=== PATIENT | male | born 1995 | race Caucasian/White ===

== ENCOUNTER 2020-02-28 06:43 | Day surgery (SDC) | payer OTHER, MEDICARE, MEDICAID ==
[~2020-02-28] VITALS: Ht 175.3 cm; Wt 95.5 kg
[~2020-02-28 06:43] MED LIST: ARIP10TA16 PO; ARIP2TAB20 PO; CLON0.1T83 PO; RINGERS SOLUTION,LACTATED 1,000 ML IV ONE
[2020-02-28] MEDS ORDERED: PROPOFOL 1% 20 ML VIAL IVP ONE (06:44)
[2020-02-28] MEDS ORDERED: LIDOCAINE/PF 2% 5 ML VIAL IM ONE (06:44)
[2020-02-28] MEDS ORDERED: KETAMINE HCL 50 MG/ML 10 ML VIAL IVP ONE (06:44)
[2020-02-28] MEDS ORDERED: MIDAZOLAM HCL 2 MG/2 ML VIAL IVP ONE (06:44)
[2020-02-28] MEDS ORDERED: FentaNYL CITRATE-PF 100 MCG/2 ML VIAL IVP ONE (06:44)
[2020-02-28] MEDS ORDERED: DEXAMETHASONE SOD PHOS 4 MG/ML VIAL IVP ONE (06:44)
[2020-02-28] MEDS ORDERED: SUCCINYLCHOLINE CHLORIDE 20 MG/ML 10 ML VIAL IVP ONE (06:44)
[2020-02-28] MEDS ORDERED: ONDANSETRON HCL 4 MG/2 ML VIAL IVP ONE (06:44)
[2020-02-28] MEDS ORDERED: MIDAZOLAM HCL 5 MG/ML VIAL ONE (07:26)
[2020-02-28 08:05] LABS: COVID AG,FIA SOURCE NASOPHARYNGEAL
[2020-02-28 08:08] LABS: BASOPHILS % (AUTO) 0.7 % (0.0-2.0); EOSINOPHILS % (AUTO) 3.4 % (1.0-6.0); HEMATOCRIT 44.9 % (41-53); HEMOGLOBIN 15.2 g/dL (13.5-17.5); LYMPHOCYTES % (AUTO) 20.7 % (22.0-44.0); MEAN CORPUSCULAR HGB CONC 33.9 G/dL (31.0-37.0); MEAN CORPUSCULAR VOLUME 92 fL (80-100); MONOCYTES # (AUTO) 0.4 K/uL (0.1-1.0); MONOCYTES % (AUTO) 8.7 % (2.0-9.0); NEUTROPHILS # (AUTO) 3.2 K/uL (1.8-7.7); NEUTROPHILS % (AUTO) 66.5 % (40.0-70.0); PLATELET COUNT (AUTO) 259 K/uL (150-450); RED CELL DISTRIBUTION WIDTH 13.9 % (11.5-14.5)
[2020-02-28] MEDS: RINGERS SOLUTION,LACTATED 1,000 ML IV ONE (08:08)
[2020-02-28] MEDS ORDERED: OXYMETAZOLINE HCL 0.05% 15 ML NASAL SPRAY NASAL ONE (08:35)
[2020-02-28 08:38] LABS: ANION GAP 4 mmol/L (8-16); CALCIUM, TOTAL 8.4 mg/dL (8.8-10.5); CARBON DIOXIDE 28 mmol/L (22-29); CHLORIDE 111 mmol/L (98-107); CREATININE 1.07 mg/dL (0.60-1.30); GLOMERULAR FILTR. RATE CALC > 60 mL/min (>60); GLUCOSE,RANDOM 100 mg/dL (70-110); POTASSIUM 4.6 mmol/L (3.5-5.1); SODIUM SERUM 143 mmol/L (136-145); UREA NITROGEN, BLOOD 14 mg/dL (7-18)
[2020-02-28] MEDS ORDERED: SODIUM CHLORIDE 0.9% 10 ML ONE (08:41)
[2020-02-28] MEDS ORDERED: AMPICILLIN SODIUM 1 GM/VIAL ONE (08:41)
[2020-02-28] MEDS ORDERED: SODIUM CHLORIDE 0.9% 0 ML ONE (08:41)
[2020-02-28 08:44] LABS: ALANINE AMINOTRANSFERASE 35 U/L (12-78); ALBUMIN 3.6 g/dL (3.4-5.0); ALKALINE PHOSPHATASE 67 U/L (46-116); ASPARTATE AMINOTRANSFERASE 16 U/L (15-37); BILIRUBIN,TOTAL 0.3 mg/dL (0.1-1.0); CHOL/HDL RATIO 4.7 (4.2-7.3); CHOLESTEROL 177 mg/dL (131-200); HDL CHOLESTEROL 38 mg/dL (40-60); LDL CHOL (CALC.) 129 mg/dL (0-130); PROTHROMBIN TIME 10.5 SEC (9.4-11.6); TOTAL PROTEIN, SERUM 6.5 g/dL (6.4-8.2); TRIGLYCERIDES 49 mg/dL (15-150)
[2020-02-28] MEDS ORDERED: HYDROmorphone 2 MG/ML SYRINGE IVP PRN (10:00)
[2020-02-28] MEDS ORDERED: MEPERIDINE-PF 25 MG/ML VIAL IVP PRN (10:00)
[2020-02-28] MEDS ORDERED: FentaNYL CITRATE-PF 100 MCG/2 ML VIAL IVP PRN (10:00)
[2020-02-28] MEDS ORDERED: OXYGEN THERAPY IH SCH (20:00)
== END 2020-02-28 10:40 | disposition home or self-care (01) ==
LOC: SURGERY 06:43
PROVIDERS: ATTEND Dentist General Practice
DX: K05.30 Chronic periodontitis, unspecified (principal); F41.9 Anxiety disorder, unspecified; R62.50 Unspecified lack of expected normal physiological development in childhood
CPT/HCPCS: 36415; 41899; 71045; 80053; 80061; 85025; 85610; 85730; 87426; 93005; J0290; J0330; J1100; J2250 ×2; J2405; J2704; J3010; J3490 ×2; J7120; J7050

== ENCOUNTER 2023-05-12 05:46 | Day surgery (SDC) | payer OTHER, MEDICARE, MEDICAID ==
[~2023-05-12] VITALS: Ht 175.3 cm; Wt 95.5 kg
[~2023-05-12 05:46] MED LIST changes: -ARIP10TA16 PO; +ARIP10TA56 PO; +CLON0.1T2 PO; -CLON0.1T83 PO; -RINGERS SOLUTION,LACTATED 1,000 ML IV ONE
[2023-05-12] MEDS ORDERED: ROCURONIUM BROMIDE 10 MG/ML 5 ML VIAL IVP ONE (05:47)
[2023-05-12] MEDS ORDERED: LIDOCAINE/PF 2% 5 ML VIAL IM ONE (05:47)
[2023-05-12] MEDS ORDERED: PROPOFOL 1% 20 ML VIAL IVP ONE (05:47)
[2023-05-12] MEDS ORDERED: ONDANSETRON HCL 4 MG/2 ML VIAL IVP ONE (05:47)
[2023-05-12] MEDS ORDERED: DEXAMETHASONE SOD PHOS 4 MG/ML VIAL IVP ONE (05:47)
[2023-05-12] MEDS ORDERED: SUGAMMADEX SODIUM 200 MG/2 ML VIAL IVP ONE (05:47)
[2023-05-12] MEDS ORDERED: AMPICILLIN SODIUM 2 GM/NS 100 ML IV ONE (06:38)
[2023-05-12] MEDS ORDERED: RINGERS SOLUTION,LACTATED 1,000 ML IV ONE ×2 (08:03→08:30)
[2023-05-12 09:32] LABS: BASOPHILS % (AUTO) 0.8 % (0.0-2.0); EOSINOPHILS % (AUTO) 1.4 % (1.0-6.0); HEMATOCRIT 40.6 % (41-53); HEMOGLOBIN 13.7 g/dL (13.5-17.5); LYMPHOCYTES # (AUTO) 0.7 K/uL (1.0-4.8); LYMPHOCYTES % (AUTO) 18.1 % (22.0-44.0); MEAN CORPUSCULAR HEMOGLOBIN 30.4 pg (26.0-34.0); MEAN CORPUSCULAR HGB CONC 33.8 G/dL (31.0-37.0); MEAN CORPUSCULAR VOLUME 90 fL (80-100); MONOCYTES # (AUTO) 0.3 K/uL (0.1-1.0); MONOCYTES % (AUTO) 6.7 % (2.0-9.0); NEUTROPHILS # (AUTO) 2.8 K/uL (1.8-7.7); PLATELET COUNT (AUTO) 193 K/uL (150-450); RED BLOOD CELL COUNT(AUTO) 4.52 MIL/uL (4.50-5.90); RED CELL DISTRIBUTION WIDTH 13.9 % (11.5-14.5); WHITE BLOOD COUNT (AUTO) 3.8 K/uL (4.5-11.0)
[2023-05-12 09:45] LABS: PROTHROMBIN TIME 10.6 SEC (9.4-11.6)
[2023-05-12 09:47] LABS: ANION GAP 7 mmol/L (8-16); CALCIUM, TOTAL 8.3 mg/dL (8.8-10.5); CARBON DIOXIDE 25 mmol/L (22-29); CHLORIDE 105 mmol/L (98-107); CREATININE 0.67 mg/dL (0.60-1.30); GLOMERULAR FILTR. RATE CALC > 60 mL/min (>60); GLUCOSE,RANDOM 98 mg/dL (70-110); SODIUM SERUM 137 mmol/L (136-145); UREA NITROGEN, BLOOD 13 mg/dL (7-18)
[2023-05-12 10:06] LABS: ALANINE AMINOTRANSFERASE 43 U/L (12-78); ALBUMIN 3.3 g/dL (3.4-5.0); ALKALINE PHOSPHATASE 62 U/L (46-116); ASPARTATE AMINOTRANSFERASE 22 U/L (15-37); BILIRUBIN,TOTAL 0.5 mg/dL (0.1-1.0); TOTAL PROTEIN, SERUM 6.4 g/dL (6.4-8.2)
== END 2023-05-12 10:35 | disposition home or self-care (01) ==
LOC: SURGERY 05:46
PROVIDERS: ATTEND Dentist General Practice
DX: K05.30 Chronic periodontitis, unspecified (principal); K03.6 Deposits [accretions] on teeth; Z79.01 Long term (current) use of anticoagulants; Z79.899 Other long term (current) drug therapy; I10 Essential (primary) hypertension; F41.9 Anxiety disorder, unspecified; F84.0 Autistic disorder
CPT/HCPCS: 41899; 71045; 80053; 84443; 85025; 85610; 85730; 36415; J0290; J2704; J1100; J3490 ×2; J2405; Q9967; J7120

== ENCOUNTER 2025-02-21 06:24 | Day surgery (SDC) | payer OTHER, BC, MEDICAID ==
[~2025-02-21] VITALS: Ht 175.3 cm; Wt 89.1 kg
[~2025-02-21 06:24] MED LIST changes: -ARIP10TA56 PO; +ARIP15TA27 PO; -ARIP2TAB20 PO; +LURA20TA PO
[2025-02-21] MEDS ORDERED: RINGERS SOLUTION,LACTATED 1,000 ML IV ONE ×2 (06:56→07:00)
[2025-02-21] MEDS ORDERED: AMPICILLIN SODIUM 2 GM/NS 100 ML IV ONE (07:27)
[2025-02-21] MEDS ORDERED: OXYMETAZOLINE HCL 0.05% 15 ML NASAL SPRAY NASAL ONE (08:29)
[2025-02-21] MEDS ORDERED: MIDAZOLAM HCL 5 MG/ML VIAL ONE (11:35)
[2025-02-21] MEDS ORDERED: SUGAMMADEX SODIUM 200 MG/2 ML VIAL IVP ONE (12:00)
[2025-02-21] MEDS ORDERED: KETAMINE HCL 50 MG/ML 10 ML VIAL ONE (12:00)
[2025-02-21] MEDS ORDERED: PROPOFOL 1% 20 ML VIAL IVP ONE (12:00)
[2025-02-21] MEDS ORDERED: PROPOFOL 1% ISO-OSM 1000 MG/100 ML BOTTLE ONE (12:00)
[2025-02-21] MEDS ORDERED: DEXAMETHASONE SOD PHOS 4 MG/ML VIAL ONE (12:00)
[2025-02-21] MEDS ORDERED: ONDANSETRON HCL 4 MG/2 ML VIAL ONE (12:00)
[2025-02-21] MEDS ORDERED: GLYCOPYRROLATE 0.2 MG/ML VIAL ONE (12:00)
[2025-02-21] MEDS ORDERED: ROCURONIUM BROMIDE 10 MG/ML 5 ML VIAL ONE (12:00)
== END 2025-02-21 13:40 | disposition home or self-care (01) ==
LOC: SDS 06:24
PROVIDERS: ATTEND Dentist General Practice
DX: K02.9 Dental caries, unspecified (principal); K05.30 Chronic periodontitis, unspecified; F84.0 Autistic disorder; I10 Essential (primary) hypertension; F41.9 Anxiety disorder, unspecified; K03.6 Deposits [accretions] on teeth; K59.00 Constipation, unspecified
CPT/HCPCS: J0290; J1100; J2250; J2405; J2704; J3490; J7120